=== PATIENT | male | born 2000 | race Caucasian/White ===

== ENCOUNTER 2024-07-15 14:48 | Emergency (ER) | payer BC ==
[~2024-07-15] VITALS: Ht 175.3 cm; Wt 63.5 kg
[2024-07-15 14:57] VITALS: BP 114/70; PULSE 85; RESP 16; TEMP 36.9; O2SAT 98
[2024-07-15] MEDS: ACETAMINOPHEN 325MG TABLET PO ONE (15:31)
== END 2024-07-15 16:20 | disposition home or self-care (01) ==
LOC: ER 14:48
DX: R51.9 Headache, unspecified (principal); J45.909 Unspecified asthma, uncomplicated; V43.52XA Car driver injured in collision with other type car in traffic accident, initial encounter; Y93.89 Activity, other specified; Y92.89 Other specified places as the place of occurrence of the external cause; Y99.8 Other external cause status
CPT/HCPCS: 99284